=== PATIENT | male | born 1955 | race Two or more races ===

== ENCOUNTER 2025-01-31 07:49 | Inpatient (IN) | payer MEDICARE, OTHER ==
[~2025-01-31] VITALS: Ht 188 cm; Wt 64.9 kg
[2025-01-31 08:38] LABS: CLARITY URINE CLEAR (CLEAR); COLOR URINE YELLOW (YELLOW); GLUCOSE URINE NEGATIVE (NEGATIVE); KETONES URINE NEGATIVE (NEGATIVE); LEUKOCYTE ESTERASE URINE NEGATIVE (NEGATIVE); NITRITE URINE NEGATIVE (NEGATIVE); OCCULT BLOOD URINE NEGATIVE (NEGATIVE); PH URINE 6.5 (4.5-8.0); PROTEIN URINE NEGATIVE (NEGATIVE); SPECIFIC GRAVITY URINE 1.018 (1.005-1.030); UROBILINOGEN URINE 0.2 E.U./dL (0.2-1.0)
[2025-01-31 08:44] LABS: BASOPHILS % 0.8 % (0.0-2.0); EOSINOPHILS % 2.8 % (0.0-5.0); HEMATOCRIT. 36.8 % (42.0-52.0); HEMOGLOBIN. 11.7 g/dL (14.0-18.0); LYMPHOCYTES % 11.3 % (20.0-50.0); MEAN CORPUSCULAR HEMOGLOBIN 20.9 pg (28.0-32.0); MEAN CORPUSCULAR HGB CONC 31.7 g/dL (31.0-37.0); MEAN PLATELET VOLUME 8.8 fl (7.4-10.4); MONOCYTES % 5.1 % (2.0-8.0); PLATELET 183 x1000/uL (130-400); RED BLOOD CELL COUNT 5.58 mill/uL (4.7-6.1); RED CELL DISTRIBUTION WIDTH 16.9 % (11.6-14.6); WHITE BLOOD COUNT 7.9 x1000/uL (4.5-11.0)
[2025-01-31 08:55] LABS: CHLORIDE 106 mEq/L (98-107); POTASSIUM 3.6 mEq/L (3.5-5.1); SODIUM 142 mEq/L (136-145)
[2025-01-31 08:56] LABS: ADD RBC MORPHOLOGY YES; CARBON DIOXIDE 28 mEq/L (21-32); DIFFERENTIAL COMMENT 1
[2025-01-31 09:01] LABS: CREATININE 0.8 mg/dL (0.6-1.3); GLUCOSE 108 mg/dL (70-105)
[2025-01-31 09:02] LABS: UREA NITROGEN BLOOD 19 mg/dL (9-23)
[2025-01-31 09:05] LABS: TROPONIN I HIGH SENSITIVITY < 4 ng/L (3.0-53)
[2025-01-31 09:11] LABS: ANISOCYTOSIS 1+; MICROCYTOSIS 2+; PLATELET ESTIMATE NORMAL
[2025-01-31 12:10] VITALS: BP_SYST 116; BP_SYST 135; BP_SYST 159; BP_DIAS 63; BP_DIAS 70; BP_DIAS 91; PULSE 70; RESP 18; TEMP 36.6; O2SAT 99
[2025-01-31] MEDS ORDERED: ACETAMINOPHEN 325MG TABLET PO PRN (13:15)
[2025-01-31] MEDS: SODIUM CHLORIDE 0.45% 1,000 ML IV SCH (13:48)
[2025-01-31 16:00] VITALS: BP 102/58; PULSE 52; RESP 18; TEMP 36.4; O2SAT 100
[2025-01-31 20:00] VITALS: BP 106/61; PULSE 56; RESP 19; TEMP 36.2; O2SAT 98
[2025-01-31 22:31] LABS: HEPATITIS B SURFACE ANTIGEN NEGATIVE (Negative)
[2025-01-31 22:53] LABS: HEPATITIS C AB NON REACTIVE (Neg) (Negative)
[2025-02-01] VITALS: BP 102/50; PULSE 55; RESP 18; TEMP 36.2; O2SAT 98
[2025-02-01 04:00] VITALS: BP 118/59; PULSE 68; RESP 20; TEMP 36.5; O2SAT 99
[2025-02-01 08:00] VITALS: BP_SYST 104; BP_SYST 126; BP_SYST 134; BP_DIAS 65; BP_DIAS 74; PULSE 59; RESP 19; TEMP 36.4; O2SAT 97
[2025-02-01 12:00] VITALS: BP 112/69; PULSE 58; RESP 20; TEMP 36.2; O2SAT 99
[2025-02-01 13:37] LABS: EOSINOPHILS % 6.6 % (0.0-5.0); HEMATOCRIT. 39.3 % (42.0-52.0); HEMOGLOBIN. 12.2 g/dL (14.0-18.0); LYMPHOCYTES % 15.8 % (20.0-50.0); MEAN CORPUSCULAR HEMOGLOBIN 20.7 pg (28.0-32.0); MEAN CORPUSCULAR VOLUME 66.7 fL (80.0-94.0); MONOCYTES % 5.1 % (2.0-8.0); NEUTROPHILS % 71.5 % (40.0-76.0); PLATELET 197 x1000/uL (130-400); RED BLOOD CELL COUNT 5.88 mill/uL (4.7-6.1); RED CELL DISTRIBUTION WIDTH 17.2 % (11.6-14.6)
[2025-02-01 13:38] LABS: ADD RBC MORPHOLOGY YES; DIFFERENTIAL COMMENT 1
[2025-02-01 13:50] LABS: CHLORIDE 106 mEq/L (98-107); POTASSIUM 4.1 mEq/L (3.5-5.1); SODIUM 143 mEq/L (136-145)
[2025-02-01 13:51] LABS: CARBON DIOXIDE 29 mEq/L (21-32)
[2025-02-01 13:52] LABS: CALCIUM 9.1 mg/dL (8.7-10.4)
[2025-02-01 13:56] LABS: CREATININE 0.8 mg/dL (0.6-1.3); GLUCOSE 88 mg/dL (70-105)
[2025-02-01 13:57] LABS: TROPONIN I HIGH SENSITIVITY 4 ng/L (3.0-53); UREA NITROGEN BLOOD 13 mg/dL (9-23)
[2025-02-01 13:58] LABS: ALANINE AMINOTRANSFERASE 13 IU/L (10-49); ALBUMIN 4.3 g/dL (3.2-4.8); ASPARTATE AMINOTRANSFERASE 20 IU/L (<34)
[2025-02-01 13:59] LABS: BILIRUBIN TOTAL 1.2 mg/dL (0.1-1.0)
[2025-02-01 14:01] LABS: THYROID STIMULATING HORMONE 1.88 uIU/mL (0.55-4.78)
[2025-02-01 16:00] VITALS: BP 109/74; PULSE 58; RESP 18; TEMP 37; O2SAT 98
[2025-02-01] MEDS ORDERED: IPRATROPIUM/ALBUTEROL 0.5-3(2.5)MG/3ML NEB NEB PRN (16:00)
[2025-02-01] MEDS ORDERED: DOCUSATE SODIUM 100MG CAPSULE PO PRN (16:00)
[2025-02-01] MEDS ORDERED: CLONIDINE 0.1MG TABLET PO PRN (16:00)
[2025-02-02 01:03] LABS: CREATINE KINASE MB FRACTION 0.8 ng/mL (0.5-3.6)
[2025-02-02 07:32] VITALS: BP 119/61; PULSE 61; RESP 18; TEMP 36.4; O2SAT 100
[2025-02-02 12:00] VITALS: BP 102/54; PULSE 56; RESP 18; TEMP 36.6; O2SAT 100
[2025-02-02 17:28] VITALS: BP 103/61; PULSE 59; TEMP 98; O2SAT 99
== END 2025-02-02 17:50 | disposition home or self-care (01) | DRG 641 ==
LOC: ER 07:49 → 8WST 10:39 → EDBEDREQTM 10:46 → EDBEDREQ 10:46
PROVIDERS: ADMIT Internal Medicine; ATTEND Internal Medicine
DX: E86.0 Dehydration (principal); R42 Dizziness and giddiness; I45.10 Unspecified right bundle-branch block; Z79.899 Other long term (current) drug therapy
CPT/HCPCS: 36415; 71045; 80048; 80053; 81003; 82550; 82553; 82962; 84443; 84484; 85025; 86705; 87340; 93005; 96360; 96361; 97161; 97166; 99285; A4606